=== PATIENT | male | born 1935 | race African-American/Black ===

== ENCOUNTER 2022-08-29 16:12 | Inpatient (IN) | payer OTHER, MEDICAID ==
[~2022-08-29] VITALS: Ht 177.8 cm; Wt 58.5 kg
[2022-08-29] MEDS ORDERED: SODIUM CHLORIDE 0.9% 500 ML IV ONE (17:45)
[2022-08-29 18:56] LABS: BASOPHILS % 0.2 % (0.0-2.0); HEMATOCRIT. 38.3 % (42.0-52.0); HEMOGLOBIN. 12.8 g/dL (14.0-18.0); LYMPHOCYTES % 9.3 % (20.0-50.0); MEAN CORPUSCULAR HEMOGLOBIN 31.4 pg (28.0-32.0); MEAN CORPUSCULAR VOLUME 93.9 fL (80.0-94.0); MEAN PLATELET VOLUME 8.4 fl (7.4-10.4); MONOCYTES % 5.8 % (2.0-8.0); NEUTROPHILS % 84.7 % (40.0-76.0); PLATELET 227 x1000/uL (130-400); RED BLOOD CELL COUNT 4.08 mill/uL (4.7-6.1); RED CELL DISTRIBUTION WIDTH 15.3 % (11.6-14.6)
[2022-08-29] MEDS ORDERED: IOHEXOL-350 100 ML BOTTLE ONE (19:00)
[2022-08-29 19:14] LABS: CREATINE KINASE 223 IU/L (39-308); ETHANOL BLOOD < 10 mg/dL
[2022-08-29] MEDS ORDERED: DEXTROSE 50% WATER 50ML SYRINGE IV ONE (19:15)
[2022-08-29 19:18] LABS: CHLORIDE 101 mEq/L (98-107)
[2022-08-29 19:26] LABS: CLARITY URINE CLEAR (CLEAR); COLOR URINE ORANGE (YELLOW); KETONES URINE TRACE (NEGATIVE); LEUKOCYTE ESTERASE URINE NEGATIVE (NEGATIVE); NITRITE URINE NEGATIVE (NEGATIVE); OCCULT BLOOD URINE 3+ (NEGATIVE); PH URINE 5.5 (4.5-8.0); PROTEIN URINE 1+ (NEGATIVE); SPECIFIC GRAVITY URINE 1.046 (1.005-1.030); UROBILINOGEN URINE 0.2 E.U./dL (0.2-1.0)
[2022-08-29] MEDS ORDERED: DEXT 10% WATER 1,000 ML IV ONE ×2 (19:30→19:45)
[2022-08-29 19:54] LABS: *AMPHETAMINES SCREEN URINE NEGATIVE (NEGATIVE); *BARBITURATES SCREEN URINE NEGATIVE (NEGATIVE); *BENZODIAZEPINES SCREEN URINE NEGATIVE (NEGATIVE); *COCAINE SCREEN URINE NEGATIVE (NEGATIVE); CANNABINOID URINE SCREEN NEGATIVE (NEGATIVE); METHADONE URINE SCREEN NEGATIVE (NEGATIVE); OPIATES URINE SCREEN NEGATIVE (NEGATIVE); PHENCYCLIDINE URINE SCREEN NEGATIVE (NEGATIVE)
[2022-08-29] MEDS ORDERED: ONDANSETRON HCL 4MG/2ML INJ IV PRN (21:00)
[2022-08-29] MEDS ORDERED: NA PHOS,M-B/NA PHOS,DI-BA ENEMA 118ML PR PRN (21:00)
[2022-08-29] MEDS: BLOOD SUGAR DIAGNOSTIC STRIP TEST SCH (21:00)
[2022-08-29] MEDS ORDERED: MAGNESIUM/ALUMINUM HYDROXIDE/SIMETHICONE 30ML UDC PO PRN (21:00)
[2022-08-29] MEDS ORDERED: ACETAMINOPHEN 325MG TABLET PO PRN ×2 (21:00)
[2022-08-29] MEDS ORDERED: GLUCAGON,HUMAN RECOMBINANT 1MG/VIAL IM NR (21:00)
[2022-08-29] MEDS ORDERED: IPRATROPIUM/ALBUTEROL 0.5-3(2.5)MG/3ML NEB NEB PRN (21:00)
[2022-08-29] MEDS ORDERED: PIPERACILLIN/TAZ 3.375G PREMIX 50 ML IV ONE (21:00)
[2022-08-29] MEDS ORDERED: ZOLPIDEM TARTRATE 5MG TABLET PO PRN (21:00)
[2022-08-29] MEDS ORDERED: GUAIFENESIN 200MG/10ML SUGAR FREE UDC PO PRN (21:00)
[2022-08-29] MEDS ORDERED: NITROGLYCERIN 0.4MG TABLET SL SL PRN (21:00)
[2022-08-29] MEDS ORDERED: DOCUSATE SODIUM 100MG CAPSULE PO PRN (21:00)
[2022-08-29] MEDS ORDERED: CLONIDINE 0.1MG TABLET PO PRN (21:00)
[2022-08-29 23:13] LABS: T4 FREE 1.3 ng/dL (0.76-1.46)
[2022-08-30 01:39] LABS: CREATINE KINASE MB FRACTION 3.4 ng/mL (0.5-3.6)
[2022-08-30 06:33] LABS: HEMOGLOBIN. 11.9 g/dL (14.0-18.0); MEAN CORPUSCULAR HEMOGLOBIN 31.8 pg (28.0-32.0); MEAN CORPUSCULAR VOLUME 93.8 fL (80.0-94.0); MEAN PLATELET VOLUME 7.8 fl (7.4-10.4); PLATELET 188 x1000/uL (130-400); RED BLOOD CELL COUNT 3.73 mill/uL (4.7-6.1); RED CELL DISTRIBUTION WIDTH 15.6 % (11.6-14.6)
[2022-08-30 06:40] LABS: CHLORIDE 105 mEq/L (98-107)
[2022-08-30 06:56] LABS: CREATINE KINASE MB FRACTION 5.8 ng/mL (0.5-3.6)
[2022-08-30 07:04] LABS: PLATELET ESTIMATE NORMAL
[2022-08-30] MEDS: ASPIRIN 325MG EC TABLET PO SCH (09:00)
[2022-08-30] MEDS: FAMOTIDINE 20MG TABLET PO SCH (09:00)
[2022-08-30 10:00] VITALS: BP 156/95
[2022-08-30 12:04] LABS: BG BASE EXCESS 1.3 mmol/L (-2.0-2.0); BG DEOXYHEMOGLOBIN 0.9 % (0.0-5.0); BG HCO3 ACT 26.3 mmol/L (22.0-26.0); BG METHEMOGLOBIN 0.1 % (0.0-1.5); BG OXYGEN SATURATION 99.1 % (92.0-98.5); BG PCO2 43.5 mmHg (35.0-45.0); BG SAMPLE SITE RIGHT BRACHIAL; BG TOTAL HEMOGLOBIN 12.1 g/dL (12.0-18.0); BG VENT MODE NASAL CANNULA
[2022-08-30] MEDS: BLOOD SUGAR DIAGNOSTIC STRIP TEST SCH ×3 (12:47→21:21)
[2022-08-30] MEDS: ENOXAPARIN 40MG/0.4ML SYR SUBCUT SCH (12:54)
[2022-08-30] MEDS: INSULIN LISPRO 100 UNITS/ML SUBCUT SCH ×4 (12:56→21:00)
[2022-08-30] MEDS: IPRATROPIUM/ALBUTEROL 0.5-3(2.5)MG/3ML NEB HHN SCH ×2 (15:22→20:22)
[2022-08-30] MEDS: DEXTROSE 50% WATER 50ML SYRINGE IV PRN ×2 (18:27→21:20)
[2022-08-30 20:00] VITALS: BP 149/70
[2022-08-30 22:00] VITALS: BP 155/61
[2022-08-30] MEDS ORDERED: DEXT 10% WATER 1,000 ML IV SCH (22:15)
[2022-08-30] MEDS ORDERED: DIPHENHYDRAMINE 50MG/ML VIAL IV PRN (22:15)
[2022-08-30] MEDS ORDERED: MAGNESIUM 2 G PREMIX 50 ML IV NR (22:45)
[2022-08-30] MEDS ORDERED: KCL 20MEQ/100ML PREMIX 100 ML IV NR (23:45)
[2022-08-31] VITALS (12 sets, daily range): BP systolic 121–179; BP diastolic 62–97
[2022-08-31] MEDS: IPRATROPIUM/ALBUTEROL 0.5-3(2.5)MG/3ML NEB HHN SCH ×3 (01:27→12:19)
[2022-08-31] MEDS: BLOOD SUGAR DIAGNOSTIC STRIP TEST SCH ×3 (06:18→17:48)
[2022-08-31] MEDS: INSULIN LISPRO 100 UNITS/ML SUBCUT SCH ×3 (06:18→18:15)
[2022-08-31] MEDS ORDERED: NITROGLYCERIN OINT 1GM/INCH UDPKT TD PRN (09:45)
[2022-08-31] MEDS ORDERED: DEXT 10% WATER 1,000 ML IV SCH (10:00)
[2022-08-31] MEDS: ENOXAPARIN 40MG/0.4ML SYR SUBCUT SCH (10:22)
[2022-08-31] MEDS: ASPIRIN 325MG EC TABLET PO SCH (10:28)
[2022-08-31] MEDS: FAMOTIDINE 20MG TABLET PO SCH (10:31)
== END 2022-08-31 23:17 | disposition short-term general hospital (02) | DRG 64 ==
LOC: ER 16:12 → EDBEDREQ 18:29 → EDBEDREQTM 18:29 → 5EST 20:35 → EDBEDREQ 20:56 → EDBEDREQTM 20:56 → ENRESERV 08-30 06:51
PROVIDERS: ADMIT Internal Medicine; ATTEND Internal Medicine
DX: I63.9 Cerebral infarction, unspecified (principal); E43 Unspecified severe protein-calorie malnutrition; J96.90 Respiratory failure, unspecified, unspecified whether with hypoxia or hypercapnia; G92.9 Unspecified toxic encephalopathy; J44.1 Chronic obstructive pulmonary disease with (acute) exacerbation; Z68.1 Body mass index [BMI] 19.9 or less, adult; J84.9 Interstitial pulmonary disease, unspecified; E11.649 Type 2 diabetes mellitus with hypoglycemia without coma; I10 Essential (primary) hypertension; Z20.822 Contact with and (suspected) exposure to COVID-19; D64.9 Anemia, unspecified; R31.9 Hematuria, unspecified; E78.5 Hyperlipidemia, unspecified; F03.90 Unspecified dementia, unspecified severity, without behavioral disturbance, psychotic disturbance, mood disturbance, and anxiety; I49.3 Ventricular premature depolarization; Z85.46 Personal history of malignant neoplasm of prostate; Z86.73 Personal history of transient ischemic attack (TIA), and cerebral infarction without residual deficits; Z85.118 Personal history of other malignant neoplasm of bronchus and lung
CPT/HCPCS: 36415; 36600; 70496; 70498; 71045; 80053; 80061; 80305; 80320; 81003; 82375; 82550; 82553; 82607; 82746; 82805; 82962; 83036; 83540; 83550; 83605; 83735; 84100; 84439; 84443; 84484; 85025; 87426; 92610; 93005; 93970; 94640; 97110; 97162; 97166; 99291; J1200; J1610; J1650; J1815; J2543; J3475; J3480; J7040; Q9967; G0480